=== PATIENT | female | born 1955 | race Caucasian/White ===

== ENCOUNTER → 2017-06-05 | Day surgery (SDC) | payer MEDICARE, OTHER ==
[~2017-06-05] VITALS: Ht 162.6 cm; Wt 86.6 kg
[~2017-06-05] MED LIST: ALPRAZOLAM1 MG PO; ATOMOXETINE40 MG; ATOMOXETINE40 MG PO; CLOPIDOGREL75 MG PO; ESCITALOPRAM OX10 MG PO; ESCITALOPRAM OX20 MG PO; OMEPRAZOLE20 M1 PO; SEROQUEL400 MG PO
[2017-06-05 11:32] VITALS: BP 154/78
== END | disposition home or self-care (01) ==
LOC: ENDO 07:30 → ORM 09:30 → ENDO 09:30
PROVIDERS: ATTEND Surgery
PROC: 0DJD8ZZ Inspection of Lower Intestinal Tract, Via Natural or Artificial Opening Endoscopic (ICD-10-PCS; principal; 2017-06-05)
DX: Z12.11 Encounter for screening for malignant neoplasm of colon (principal); K64.1 Second degree hemorrhoids; Z86.010 Personal history of colon polyps

== ENCOUNTER 2019-11-18 09:21 | Emergency (ER) | payer MEDICARE, OTHER ==
[~2019-11-18] VITALS: Ht 162.6 cm; Wt 86.3 kg
[2019-11-18 10:39] VITALS: BP 149/58
== END 2019-11-18 10:39 | disposition home or self-care (01) ==
LOC: ED 09:21
DX: S09.90XA Unspecified injury of head, initial encounter (principal); W01.0XXA Fall on same level from slipping, tripping and stumbling without subsequent striking against object, initial encounter; S63.91XA Sprain of unspecified part of right wrist and hand, initial encounter; W07.XXXA Fall from chair, initial encounter; F17.210 Nicotine dependence, cigarettes, uncomplicated; Y92.009 Unspecified place in unspecified non-institutional (private) residence as the place of occurrence of the external cause